=== PATIENT | female | born 1950 | race African-American/Black ===

== ENCOUNTER 2019-08-30 14:01 | Inpatient (IN) | payer MEDICARE, OTHER ==
[~2019-08-30] VITALS: Ht 167.6 cm; Wt 87.8 kg
[2019-08-30 14:47] LABS: Basophils # (auto) 0 uL; Eosinophils # (auto) 0.1 uL; Eosinophils % (auto) 1.5 % (0.0-7.0); Hemoglobin 13.4 g/dL (12.2-16.2); Lymphocytes # (auto) 0.9 uL; Monocytes # (auto) 0.4 uL; Neutrophils # (auto) 2.4 uL; Nucleated Red Blood Cells % 0.1 %
[2019-08-30 14:49] LABS: Basophils % (auto) 0.7 % (0.0-2.0); Lymphocytes % (auto) 24.9 % (10.0-50.0); Mean Corpuscular Hemoglobin 26.6 pg (28.0-32.0); Mean Corpuscular Hgb Conc. 33.6 g/dL (32.0-36.0); Mean Corpuscular Volume 79.2 fL (80.0-100.0); Monocytes % (auto) 9.5 % (0.0-12.0); Neutrophils % (auto) 63.4 % (37.0-80.0); Platelet Count (auto) 215 10^3/uL (140-450); Red Blood Cells 5.06 10^6/uL (4.0-5.20); Red Cell Distribution Width 14.8 % (11.8-14.3); White Blood Cell 3.7 10^3/uL (4.4-10.8)
[2019-08-30 15:06] LABS: Alanine Aminotransferase 36 U/L (13-56); Albumin 3.5 g/dL (3.4-5.0); Anion Gap 6 (5-15); Aspartate Aminotransferase 36 U/L (15-37); BUN/Creatinine Ratio 17.7; Blood Urea Nitrogen 17 mg/dL (7-18); Calcium 8.9 mg/dL (8.5-10.1); Carbon Dioxide 25 mmol/L (21-32); Chloride 107 mmol/L (98-107); GFR African American 74 mL/min; GFR Non-African American 61 mL/min; Glucose 140 mg/dL (74-106); Magnesium 1.9 mg/dL (1.6-2.6); Potassium 3.8 mmol/L (3.5-5.1); Sodium 138 mmol/L (136-145)
[2019-08-30 15:11] LABS: Alkaline Phosphatase 112 U/L (45-117); Bilirubin, Total 0.3 mg/dL (0.2-1.0); Total Protein 7.5 g/dL (6.4-8.2)
[2019-08-30] MEDS ORDERED: MORPHINE SULF INJ 2 MG/ML SYRINGE 1ML IV ONE ×2 (15:15→16:30)
[2019-08-30] MEDS ORDERED: ONDANSETRON HCL 4 MG/2 ML VIAL IV ONE (15:15)
[2019-08-30 15:43] LABS: INR 0.95 (0.9-1.15); Partial Thromboplastin Time 28.8 sec (23.64-32.05)
[2019-08-30] MEDS ORDERED: ASPirin 81 mg TAB PO ONE (19:45)
[2019-08-30] MEDS ORDERED: NITROGLYCERIN 0.4MG/HR TOPICAL PATCH TD ONE (19:45)
[2019-08-30] MEDS ORDERED: NITROGLYCERIN 0.4 MG SL TAB SL PRN (19:45)
[2019-08-30] MEDS ORDERED: ACETAMINOPHEN 500 MG TAB PO PRN (19:45)
[2019-08-30] MEDS ORDERED: ONDANSETRON HCL 4 MG/2 ML VIAL IV PRN (19:45)
[2019-08-30 19:58] LABS: Cholesterol 155 mg/dL (< 200); Triglycerides 76 mg/dL (< 150)
[2019-08-30 20:00] LABS: HDL Cholesterol 58 mg/dL (40-59); LDL Cholesterol 91 mg/dL (< 100)
[2019-08-30] MEDS: HYDROcodone-ACET 5/325MG TAB PO PRN (20:29)
[2019-08-30] MEDS: hydrALAZINE HCL 20 MG/ML VL IV PRN (20:32)
[2019-08-30] MEDS ORDERED: ZOLP10TA PO (21:49)
[2019-08-30] MEDS ORDERED: METF-929 PO (21:49)
[2019-08-30] MEDS ORDERED: HYDR-4833 PO (21:49)
[2019-08-30] MEDS ORDERED: GABA-339 PO (21:49)
[2019-08-30] MEDS ORDERED: ASPI-498 OR (21:49)
--- NOTE | 2019-08-30 22:00 | NUR ---
Admitted to room 294 B. Alert and oriented x4. Denies chest pain at this time. Nitro patch to right upper chest. Vitals WNL. Slight rash to lower extremities. Patient verbalized just finishing a round of antibiotics for PNA she had over a month ago and says it started around the same time. [place] gel given and called hospitalist for order of benadryl per pt request. Large roland down left leg. Skin clear otherwise. No open wounds noted. Says shes a diabetic. Informed hospitalist as well. No new orders at this time IV to left wrist patent and saline locked. Oriented to room and hospital policy. Bed low and call light within reach
--- NOTE | 2019-08-30 22:02 | NUR ---
Paged hospitalist: New Admission @ [id number] -Patient takes Ambien PO QHS 10 mg @ home and requesting to continue. -Raised rash to lower extremities and complaining of constant itching for the past few days. Has been taking benadryl at home PRN and would like an order to continue that as well. -History of DM, no accuchecks ordered.
[2019-08-30] MEDS: METOPROLOL TARTRATE 25 MG TAB PO SCH (22:30)
[2019-08-30] MEDS: ATORVASTATIN 20 MG TAB PO SCH (22:30)
[2019-08-30] MEDS ORDERED: diphenhdrAMINE HCL 25 MG CAP PO ONE (22:45)
[2019-08-30] MEDS ORDERED: ZOLPIDEM TARTRATE 5 MG TAB PO ONE (22:45)
[2019-08-30 23:44] VITALS: BP 132/70
[2019-08-31] MEDS: MORPHINE SULF INJ 2 MG/ML SYRINGE 1ML IV PRN ×5 (02:38→17:09)
[2019-08-31 05:14] VITALS: BP_SYST 117; BP_SYST 127; BP_DIAS 65; BP_DIAS 67
[2019-08-31 05:14] LABS: Basophils # (auto) 0 uL; Eosinophils # (auto) 0.1 uL; Eosinophils % (auto) 1.8 % (0.0-7.0); Hemoglobin 13.8 g/dL (12.2-16.2); Lymphocytes # (auto) 0.9 uL; Monocytes # (auto) 0.3 uL; Neutrophils # (auto) 1.7 uL
[2019-08-31 05:16] LABS: Basophils % (auto) 0.6 % (0.0-2.0); Hematocrit 42.3 % (36.0-46.0); Lymphocytes % (auto) 29.1 % (10.0-50.0); Mean Corpuscular Hemoglobin 26.5 pg (28.0-32.0); Mean Corpuscular Hgb Conc. 32.5 g/dL (32.0-36.0); Mean Corpuscular Volume 81.5 fL (80.0-100.0); Monocytes % (auto) 11.4 % (0.0-12.0); Neutrophils % (auto) 57.1 % (37.0-80.0); Nucleated Red Blood Cells % 0.4 %; Platelet Count (auto) 189 10^3/uL (140-450); Red Blood Cells 5.18 10^6/uL (4.0-5.20); White Blood Cell 3.1 10^3/uL (4.4-10.8)
[2019-08-31 05:27] LABS: INR 0.95 (0.9-1.15)
[2019-08-31 05:29] LABS: BUN/Creatinine Ratio 19.1; Calcium 8.7 mg/dL (8.5-10.1); Potassium 3.8 mmol/L (3.5-5.1)
--- NOTE | 2019-08-31 06:00 | NUR ---
Patient complaining of sharp chest pain again that is also in the right jaw as well. BP 142/78 P80 R16 O290% on RA. Placed on oxygen @ 2L and oxygen sat went up to 94-95%/ EKG performed. Will have MD sign. Morphine given per orders. Tele monitor in place and showing SR 78with depressed ST. Denies any other symptoms, No N/V etc. Nitro patch to right upper chest still in place. Will continue to monitor
--- NOTE | 2019-08-31 07:30 | NUR ---
Opening Shift Note Assuming care of patient at this time. Patient is awake and alert. Patient is complaining of pain to left arm. Bed is locked and lowered with side rails up x2. Instructed patient on the plan of care for today and to call for assistance as needed. Call light within reach. Will continue to round hourly and as needed.
--- NOTE | 2019-08-31 08:11 | NUR ---
Went looking for MD/Loc to sign EKG and was unable to find him. Checked around in ER as well as physicians jesika. Notified Larissa QUINTANA as well. EKG in chart. Patient stable at this time. No distress noted.
[2019-08-31] MEDS: hydrALAZINE HCL 20 MG/ML VL IV PRN (08:12)
[2019-08-31 09:00] VITALS: BP 166/91
[2019-08-31] MEDS: LISINOPRIL 10 MG TAB PO SCH ×2 (10:00→17:09)
[2019-08-31] MEDS: METOPROLOL TARTRATE 25 MG TAB PO SCH ×3 (10:00→21:11)
[2019-08-31] MEDS: FAMOTIDINE 20 MG TAB PO SCH ×2 (10:00→17:08)
[2019-08-31] MEDS: ASPirin-EC 81 mg tab PO SCH ×2 (10:00→17:07)
--- NOTE | 2019-08-31 10:00 | NUR ---
Loss of IV access Patient's IV has came out at this time. Patient is holding the tape at this time with blood running from insertion site. IV catheter intact. Will attempt to place another IV.
--- NOTE | 2019-08-31 10:01 | NUR ---
Cardio Consult Rut Mendoza NP, notified this RN that patient will be going to stress test possibly today. Will hold morning medications. JAMEL Mendoza, also states that patient is having pain and to give patient her chest pain morphine as ordered. Will administer the morphine once patient has IV access.
--- NOTE | 2019-08-31 10:20 | NUR ---
IV attempt Unable to obtain IV access. Patient states that she has had to have a PICC line before. Will put in an order for a midline.
[2019-08-31] MEDS ORDERED: ADENOSINE 68 MG in GIVE UN-DILUTED 0 ML IV STA (11:43)
[2019-08-31 12:53] VITALS: BP 168/81
--- NOTE | 2019-08-31 14:33 | NUR ---
STRESS TEST- NUCLEAR STRESS TEST COMPLETED ON 08/31/2019.
[2019-08-31] MEDS ORDERED: DEXTROSE (50%) 50ML SYRG IV PRN (14:45)
[2019-08-31 16:55] VITALS: BP 177/90
[2019-08-31] MEDS: ACCU-CHEK COMFORT CURVE STRIP VI SCH ×2 (17:30→21:12)
[2019-08-31] MEDS: InsuLIN REG 1unit/0.01ml Soln (100units/ml) SC SCH ×2 (19:13→22:06)
--- NOTE | 2019-08-31 19:30 | NUR ---
Opening Shift Note Assumed care of patient. Patient is awake and alert. No S/S of distress/SOB or pain. Instructed on POC and to call for assist PRN, will continue to monitor for changes. Bed locked in lowest position and bed rails up x2. Call light within reach.
--- NOTE | 2019-08-31 19:37 | NUR ---
Closing Shift Note Patient is resting in bed. Patient has been medicated for pain. No distress noted. Report given. Will endorse care to the evening or night nurse supervisor RN.
[2019-08-31] MEDS: ATORVASTATIN 20 MG TAB PO SCH (21:05)
[2019-08-31] MEDS: HYDROcodone-ACET 5/325MG TAB PO PRN (21:12)
[2019-08-31 22:04] VITALS: BP 128/62
[2019-09-01] MEDS ORDERED: TEMAZEPAM 15 MG CAP PO ONE
[2019-09-01 05:48] VITALS: BP 121/65
[2019-09-01] MEDS: ACCU-CHEK COMFORT CURVE STRIP VI SCH ×4 (06:22→22:17)
[2019-09-01] MEDS: InsuLIN REG 1unit/0.01ml Soln (100units/ml) SC SCH ×4 (06:22→22:53)
[2019-09-01 07:00] LABS: Basophils # (auto) 0 uL; Eosinophils # (auto) 0.1 uL; Hematocrit 39.5 % (36.0-46.0); Hemoglobin 13.1 g/dL (12.2-16.2); Neutrophils # (auto) 3.1 uL; White Blood Cell 5.4 10^3/uL (4.4-10.8)
[2019-09-01 07:05] LABS: Basophils % (auto) 0.3 % (0.0-2.0); Eosinophils % (auto) 2.1 % (0.0-7.0); Lymphocytes # (auto) 1.4 uL; Lymphocytes % (auto) 25.9 % (10.0-50.0); Mean Corpuscular Hemoglobin 26.5 pg (28.0-32.0); Mean Corpuscular Hgb Conc. 33.1 g/dL (32.0-36.0); Mean Corpuscular Volume 79.9 fL (80.0-100.0); Monocytes # (auto) 0.8 uL; Monocytes % (auto) 14.6 % (0.0-12.0); Neutrophils % (auto) 57.1 % (37.0-80.0); Nucleated Red Blood Cells % 0.2 %; Platelet Count (auto) 208 10^3/uL (140-450); Red Blood Cells 4.95 10^6/uL (4.0-5.20); Red Cell Distribution Width 14.7 % (11.8-14.3)
[2019-09-01 07:12] LABS: Potassium 3.9 mmol/L (3.5-5.1)
[2019-09-01 07:14] LABS: INR 0.98 (0.9-1.15); Partial Thromboplastin Time 25.1 sec (23.64-32.05)
[2019-09-01 07:19] LABS: BUN/Creatinine Ratio 16.2; Calcium 8.8 mg/dL (8.5-10.1)
[2019-09-01 08:15] LABS: Urine WBC None Seen /hpf (0 - 5)
[2019-09-01 08:22] LABS: Urine Bacteria NONE SEEN /hpf (None Seen); Urine Blood Negative /uL (Negative); Urine Specific Gravity 1.012 (1.001-1.035)
[2019-09-01 09:00] VITALS: BP 129/69
[2019-09-01] MEDS: FAMOTIDINE 20 MG TAB PO SCH (10:00)
[2019-09-01] MEDS: ASPirin-EC 81 mg tab PO SCH (10:15)
[2019-09-01] MEDS: METOPROLOL TARTRATE 25 MG TAB PO SCH ×2 (10:16→22:16)
[2019-09-01] MEDS: LISINOPRIL 10 MG TAB PO SCH (10:16)
[2019-09-01] MEDS: HYDROcodone-ACET 5/325MG TAB PO PRN ×2 (10:17→18:38)
--- NOTE | 2019-09-01 12:00 | NUR ---
Patient off Unit Patient taken to laboratory courier at this time.
[2019-09-01] MEDS ORDERED: LIDOCAINE 2%HCL (LOCAL ANESTH.) INJ 20ML MDV ONE (12:31)
[2019-09-01] MEDS ORDERED: IOHEXOL 350 MG/ML 100ML IJ ONE (12:31)
[2019-09-01] MEDS ORDERED: fentaNYL CITRATE 100 MCG/2 ML VL ONE (12:58)
[2019-09-01] MEDS ORDERED: MIDAZOLAM HCL 1MG/1ML-2 ML VIAL ONE (12:58)
[2019-09-01] MEDS ORDERED: SODIUM CHL 0.9% 50 ML ONE (14:13)
[2019-09-01] MEDS ORDERED: ANGIOMAX 250 MG VIAL IV ONE (14:13)
[2019-09-01] MEDS ORDERED: CLOPIDOGREL 300 MG TAB ONE (14:39)
[2019-09-01 16:15] VITALS: BP 134/87
--- NOTE | 2019-09-01 16:15 | NUR ---
Back on Unit Patient back on unit at this time. No complaints of pain. Patient shows no signs or symptoms of distress.
[2019-09-01 17:00] VITALS: BP 134/87
--- NOTE | 2019-09-01 19:40 | NUR ---
Opening Shift Note Assumed care of patient. Patient is awake, alert and resting. No S/S of distress/SOB or pain. Instructed on POC and to call for assist PRN, will continue to monitor for changes. Bed locked in lowest position and bed rails up x2. Call light within reach.
--- NOTE | 2019-09-01 19:47 | NUR ---
Closing Shift Note Patient is resting in bed. No distress noted. Report given. Will endorse care to the remote sensing scientist RN.
--- NOTE | 2019-09-01 20:00 | NUR ---
Dressing on right groin intact, clean and dry with no s/s of pain or discomfort
[2019-09-01 22:00] VITALS: BP 145/81
[2019-09-01] MEDS: ATORVASTATIN 20 MG TAB PO SCH (22:16)
[2019-09-02] MEDS ORDERED: TEMAZEPAM 15 MG CAP PO ONE (01:00)
[2019-09-02] MEDS: HYDROcodone-ACET 5/325MG TAB PO PRN ×3 (04:22→16:32)
[2019-09-02] MEDS: hydrALAZINE HCL 20 MG/ML VL IV PRN (04:23)
--- NOTE | 2019-09-02 04:30 | NUR ---
B/P elevated at 166/71. B/P reassessed with a reading of 153/70. B/P PRN medication given
[2019-09-02 05:00] VITALS: BP 153/70
[2019-09-02 05:49] LABS: Calcium 8.5 mg/dL (8.5-10.1)
[2019-09-02 05:52] LABS: BUN/Creatinine Ratio 19.7
[2019-09-02 05:59] LABS: Basophils # (auto) 0 uL; Basophils % (auto) 0.4 % (0.0-2.0); Eosinophils # (auto) 0.2 uL; Eosinophils % (auto) 3.1 % (0.0-7.0); Hemoglobin 14.1 g/dL (12.2-16.2); Lymphocytes # (auto) 1.4 uL; Lymphocytes % (auto) 26.9 % (10.0-50.0); Mean Corpuscular Hemoglobin 26.6 pg (28.0-32.0); Monocytes # (auto) 0.6 uL; Monocytes % (auto) 11.1 % (0.0-12.0); Neutrophils # (auto) 3.1 uL; Neutrophils % (auto) 58.5 % (37.0-80.0); Nucleated Red Blood Cells % 0.1 %; Platelet Count (auto) 187 10^3/uL (140-450); Red Cell Distribution Width 15.3 % (11.8-14.3); White Blood Cell 5.3 10^3/uL (4.4-10.8)
[2019-09-02] MEDS: InsuLIN REG 1unit/0.01ml Soln (100units/ml) SC SCH ×2 (06:52→11:30)
[2019-09-02] MEDS: ACCU-CHEK COMFORT CURVE STRIP VI SCH ×3 (06:52→17:00)
[2019-09-02 08:00] VITALS: BP 153/70
[2019-09-02 09:01] VITALS: BP 166/77
[2019-09-02] MEDS ORDERED: CLOPIDOGREL BISULFATE 75 MG TAB PO SCH (10:00)
[2019-09-02] MEDS: ASPirin-EC 81 mg tab PO SCH (10:38)
[2019-09-02] MEDS: FAMOTIDINE 20 MG TAB PO SCH (10:39)
[2019-09-02] MEDS: METOPROLOL TARTRATE 25 MG TAB PO SCH (10:39)
[2019-09-02] MEDS: LISINOPRIL 10 MG TAB PO SCH (10:40)
[2019-09-02 13:00] VITALS: BP 165/88
[2019-09-02] MEDS ORDERED: diphenhdrAMINE HCL 25 MG CAP PO ONE (14:15)
[2019-09-02] MEDS ORDERED: LISI10TA6 PO (15:59)
[2019-09-02] MEDS ORDERED: ATOR20TA50 PO (15:59)
[2019-09-02] MEDS ORDERED: MET25T PO (15:59)
[2019-09-02] MEDS ORDERED: CLOP75TA28 PO (15:59)
[2019-09-02 17:03] VITALS: BP 145/73
[2019-09-02 17:19] VITALS: BP 153/76
--- NOTE | 2019-09-02 18:30 | NUR ---
Discharge instructions given as ordered. Encourage to follow up with PMD as instructed. All questions and concerns addressed. Patient verbalized understanding. Medication reconciliation form completed and copy given to patient. Home medications held in Pharmacy returned to patient. IV removed with catheter intact, pressure dressing applied. Telemetry unit returned to ICU. Patient taken to vehicle via wheelchair with all personal belongings, accompanied by staff and family member. No distress noted at time of departure.
== END 2019-09-02 18:45 | disposition home or self-care (01) | DRG 254 ==
LOC: EDBD 14:01 → ER 14:15 → TELE 14:16 → TELE-WESTW 21:06
PROVIDERS: ADMIT Nurse Practitioner Acute Care; ATTEND Internal Medicine
PROC: 047L3Z1 Dilation of Left Femoral Artery using Drug-Coated Balloon, Percutaneous Approach (ICD-10-PCS; principal; 2019-09-01)
PROC: B41G1ZZ Fluoroscopy of Left Lower Extremity Arteries using Low Osmolar Contrast (ICD-10-PCS; 2019-09-01)
PROC: B41F1ZZ Fluoroscopy of Right Lower Extremity Arteries using Low Osmolar Contrast (ICD-10-PCS; 2019-09-01)
DX: I25.119 Atherosclerotic heart disease of native coronary artery with unspecified angina pectoris (principal); E11.51 Type 2 diabetes mellitus with diabetic peripheral angiopathy without gangrene; I10 Essential (primary) hypertension; J44.9 Chronic obstructive pulmonary disease, unspecified; I70.213 Atherosclerosis of native arteries of extremities with intermittent claudication, bilateral legs; Z86.73 Personal history of transient ischemic attack (TIA), and cerebral infarction without residual deficits; Z87.01 Personal history of pneumonia (recurrent); Z87.442 Personal history of urinary calculi; Z95.5 Presence of coronary angioplasty implant and graft; Z95.820 Peripheral vascular angioplasty status with implants and grafts; Z82.49 Family history of ischemic heart disease and other diseases of the circulatory system; Z79.84 Long term (current) use of oral hypoglycemic drugs
CPT/HCPCS: 36415; 37224; 71045; 71250; 74176; 75716; 78452; 80048; 80053; 80061; 81001; 82962; 83036; 83735; 83880; 84443; 84484; 85025; 85610; 85730; 86141; 93005; 93017; 93306; 93926; 96365; 96375; 99152; 99153; G0378; J0153; J1815; J2250; J2405